=== PATIENT | male | born 1990 | race Caucasian/White ===

== ENCOUNTER 2022-11-19 23:31 | Emergency (ER) | payer MEDICAID ==
[~2022-11-19] VITALS: Ht 177.8 cm; Wt 82.0 kg
[2022-11-19] MEDS ORDERED: HYDROCODONE/ACETAMINOPHEN 10/325MG TABLET PO ONE (23:45)
[2022-11-20] MEDS ORDERED: IBUP-2029 MT (02:40)
[2022-11-20 06:00] VITALS: BP 132/93
== END 2022-11-20 06:16 | disposition home or self-care (01) ==
LOC: ER 23:31
DX: S42.401A Unspecified fracture of lower end of right humerus, initial encounter for closed fracture (principal); V19.9XXA Pedal cyclist (driver) (passenger) injured in unspecified traffic accident, initial encounter; Y93.89 Activity, other specified; Y92.89 Other specified places as the place of occurrence of the external cause; Y99.8 Other external cause status
CPT/HCPCS: 29105; 73030; 73080; 73110; 99284